=== PATIENT | female | born 1955 | race African-American/Black ===

== ENCOUNTER 2017-04-14 09:39 | Emergency (ER) | payer BC ==
--- NOTE | ~2017-04-14 | EKG ---
PATIENT: CHARISSE DAVISON UNIT #: [id number] Ventricular Rate: 76 BPM Atrial Rate: 76 BPM P-R Interval: 166 ms QRS Duration: 88 ms Q-T Interval: 436 ms QTC Calculation(Bezet): 490 ms P Irving: 50 degrees Calculated R Irving: 15 degrees Calculated T Irving: 6 degrees Diagnosis Line: Normal sinus rhythm Diagnosis Line: Nonspecific T wave abnormality Diagnosis Line: Prolonged QT Diagnosis Line: Abnormal ECG Diagnosis Line: No previous ECGs available Diagnosis Line: Confirmed by SAM BAIG MD ([id number]) on Diagnosis Line: 04/15/2017 4:49:49 PM INTERPRETING MD: JOVANNI HARRIS
--- NOTE | ~2017-04-14 | CR181 ---
[facility] A Service of [facility] & [facility] RADIOLOGY TEXT RESULTS PATIENT: CHARISSE DAVISON LOCATION: SED : 55 UNIT #: [id number] AGE: [address]: Williams Bradshaw MD SEX: F ORDER DR: [id number] [address] [id number] E MR#: [id number] Acc #: [id number] NAME: CHARISSE DAVISON : 1955 SEX: F STUDY DATE/TIME: 04/14/2017 11:16 UNIT: SED ROOM: STUDY DESCRIPTION: CR Lumbar Spine 2 or 3 Views Attending Physician: Williams Bradshaw M.D. Ordering Physician: Williams Bradshaw M.D. Primary Care Physician: Silvano Maciel M.D. MEDICAL IMAGING REPORT This report is preliminary unless electronic signature is present. EXAM Lumbar spine series 04/14/2017 HISTORY Radiculopathy. Dizzy, back pain into right leg, short of air, chest pain couple months duration. No known injury. FINDINGS AP and lateral radiographs of the lumbar spine are presented. Poor quality examination. Clothing artifacts and external monitoring equipment artifacts overlie relevant anatomy on the frontal image. There is a safety pin superimposed over midline upper pelvis. This is presumed extrinsic to the patient. There are 5 lumbar-type vertebral segments. Alignment in the frontal projection is normal. 6-7 mm anterolisthesis L4 on L5 in the lateral projection. This is new compared to May 2010. There is no evidence of fracture. There is marked narrowing of the L4-L5 and L5-S1 intervertebral disc spaces with suggestion of vacuum disc phenomenon. The narrowing at the L4-L5 intervertebral disc space is markedly worse than on the prior examination in 2009 and the anterolisthesis is likely due to degenerative disc and facet changes. Moderate to marked facet degenerative changes suggested L3-L4, L4-L5, L5-S1. Increased from prior examination and most pronounced L4-L5, L5-S1. Lateral view raises possibility of potentially significant neural foraminal narrowing L5-S1. The visualized bony pelvis shows no acute abnormality. Visualized thoracic spine unremarkable. There are atherosclerotic arterial calcifications. If it would assist in patient management, neural foraminal and spinal canal contents could be further evaluated with elective MRI if the patient is a candidate or with elective CT. [facility] A Service of [facility] RADIOLOGY TEXT RESULTS PATIENT: CHARISSE DAVISON LOCATION: [facility] : 55 UNIT #: [id number] AGE: [address]: Williams Bradshaw MD SEX: F ORDER DR: Dictated by... Mike Hinson M.D. THIS IS AN ELECTRONICALLY VERIFIED REPORT Mike Hinson M.D. at 04/15/2017 6:42 PM DELMA/geoff TD: 04/14/2017 12:56 JOB #: [id number] MEDICAL IMAGING REPORT Page 1 of 1
--- NOTE | ~2017-04-14 | CR72 ---
[facility]. [facility] A Service of [facility] & [facility] RADIOLOGY TEXT RESULTS PATIENT: CHARISSE DAVISON LOCATION: SED : 55 UNIT #: [id number] AGE: [address]: Williams Bradshaw MD SEX: F ORDER DR: [id number] [place] [id number] MR#: [id number] Acc #: [id number] NAME: CHARISSE DAVISON : 1955 SEX: F STUDY DATE/TIME: 04/14/2017 11:16 UNIT: SED ROOM: STUDY DESCRIPTION: CR Chest Single View Portable Attending Physician: Williams Bradshaw M.D. Ordering Physician: Williams Bradshaw M.D. Primary Care Physician: Silvano Maciel M.D. MEDICAL IMAGING REPORT This report is preliminary unless electronic signature is present. EXAM Portable chest x-ray, 04/14/2017 HISTORY Shortness of air FINDINGS AP radiograph of the chest is presented. Poor quality examination. Clothing artifacts overlie relevant anatomy. Surgical clip in the right axillary region. Heart normal in size. Lungs well inflated. Chronic linear fibrotic change in the mid to upper right lung zone. No change from prior study. Area of linear scarring at the right lung base also stable. There is no clear indication of acute pulmonary disease, pleural effusion or pneumothorax. No suspicious nodule. No acute-appearing bony abnormality. Dictated by... Mike Hinson M.D. THIS IS AN ELECTRONICALLY VERIFIED REPORT Mike Hinson M.D. at 04/15/2017 6:42 PM Rahul TD: 04/14/2017 12:45 JOB #: [id number] MEDICAL IMAGING REPORT Page 1 of 1
[2017-04-14] MEDS ORDERED: OMEPRAZOLE20 M1 PO (10:11)
[2017-04-14] MEDS ORDERED: METOPROLOL TAR100 MG PO (10:11)
[2017-04-14] MEDS ORDERED: DOXEPIN PO (10:12)
[2017-04-14 11:11] LABS: POC - CKMB <1.0 ng/mL (0.0-7.9); POC - TROPONIN <0.05 ng/mL (<=0.05)
[2017-04-14 11:23] LABS: BASOPHIL# 0.1 X10e3 (0-0.3); BASOPHIL% 1.1 % (0-2.5); EOSINOPHIL# 0.1 X10e3 (0-0.7); EOSINOPHIL% 2.7 % (0.0-7.0); HEMATOCRIT 38.3 % (35.0-45.0); HEMOGLOBIN 12.6 gm/dL (12.0-16.0); LYMPHOCYTE# 1.5 X10e3 (1.0-3.5); LYMPHOCYTE% 29.6 % (17.0-45.0); MEAN CELL VOLUME 88.2 FL (83-96); MEAN CORPUSCULAR HEMOGLOBIN 29.1 PG (28-34); MEAN PLATELET VOLUME 8.2 FL (6.5-11.5); MONOCYTE# 0.3 X10e3 (0-1.0); MONOCYTE% 6.4 % (3.0-12.0); NEUTROPHIL# 3.1 X10e3 (1.5-7.1); NEUTROPHIL% 60.2 % (40-75); PLATELET COUNT 299 X10e3 (140-420); RED BLOOD COUNT 4.35 X10e (3.90-5.30); RED CELL DISTRIBUTION WIDTH 13.1 % (11.0-15.5); WHITE BLOOD COUNT 5.1 X10e3 (4.0-10.5)
[2017-04-14 11:25] LABS: ALBUMIN SERUM 4.2 g/dL (3.5-5.0); ALKALINE PHOSPHATASE 104 U/L (32-92); ALT (SGPT) 15 U/L (10-40); AST (SGOT) 16 U/L (10-42); BILIRUBIN,TOTAL 0.4 mg/dL (0.2-2.0); BLOOD UREA NITROGEN 17 mg/dL (9-23); BUN/CREATININE RATIO 12.14; CALCIUM SERUM 8.2 mg/dL (8.4-10.2); CARBON DIOXIDE 23 mmol/L (22-31); CHLORIDE 106 mmol/L (100-111); CREATININE SERUM 1.4 mg/dL (0.6-1.4); GLOM FILT RATE Estimated 46.9 mL/min (>60); GLUCOSE FASTING 87 mg/dL (70-110); POTASSIUM 4.5 mmol/L (3.5-5.1); PROTEIN TOTAL SERUM 8.8 g/dL (6.0-8.3); SODIUM 133 mmol/L (135-145)
[2017-04-14 11:26] LABS: BILIRUBIN, DIRECT <0.1 mg/dL (0.0-0.2); BILIRUBIN,INDIRECT 0.3 mg/dL (0.0-0.9); DIFF IND NO
== END 2017-04-14 16:07 ==
LOC: SED 09:39
PROVIDERS: Emergency Medicine
DX: I47.2 Ventricular tachycardia (principal); R42 Dizziness and giddiness; M54.5 Low back pain; H92.02 Otalgia, left ear; R05 Cough; F41.9 Anxiety disorder, unspecified; F32.9 Major depressive disorder, single episode, unspecified; K21.9 Gastro-esophageal reflux disease without esophagitis; Z85.3 Personal history of malignant neoplasm of breast; Z87.891 Personal history of nicotine dependence; Z79.899 Other long term (current) drug therapy
CPT/HCPCS: 36415; 71010; 72100; 80048; 80076; 82553; 82947; 83735; 84484; 85025; 93005; 96374; 96375; 96376; 99285; J2270; J2405; J3475